=== PATIENT | male | born 1980 | race Caucasian/White ===

== ENCOUNTER 2018-05-20 08:51 | Emergency (ER) | payer BC ==
[2018-05-20 09:00] VITALS: BP 106/69
--- NOTE | 2018-05-20 09:20 | UC ---
Skin Complaint HPI - HPI Summary HPI Summary: 38 y/o male presents to the urgent care c/o a rash in his left ankle for the past 2 weeks s/p fishing. Pt reports he thought at the beginning it was a spire bite, but then he developed some vesicles and a linear rash. Then her mother who is a Nurse told him it was poison kia. He has been applying hydrocortisone topical cream to alleviate symptoms. It has spread in his other leg. however about 2 days redness w/ pain and swelling developed. He thinks it is getting infected since he has been scratching it a lot. He took Ibuprofen 600mg PO last night for pain. Pt denies fever, calf pain, SOB, chest pain, abdominal pain, N/V /D. - History of Current Complaint Chief Complaint: UCRash Time Seen by Provider: 05/20/18 09:19 Stated Complaint: RASH Hx Obtained From: Patient Onset/Duration: Sudden Onset, Lasting Weeks - 2 weeks, Still Present, Worse Since - 2 days Skin Exposure Onset/Duration: Weeks Ago - 2 weeks, Worse Since: - 2 days Timing: Constant Onset Severity: Mild Current Severity: Moderate Pain Intensity: 4 Pain Scale Used: 0-10 Numeric Location: Discrete - lateral side of left ankle rash Character: Swelling, Pruritus, Redness, Painful Aggravating Factor(s): Touch Alleviating Factor(s): OTC Meds Associated Signs & Symptoms: Positive: Rash, Drainage, Tenderness. Negative: Fever, Chills Related History: Possible Reaction to: Environmental Exposure - Allergy/Home Medications Allergies/Adverse Reactions: Allergies Allergy/AdvReac Type Severity Reaction Status Date / Time No Known Allergies Allergy Verified 05/20/18 09:00 Home Medications: Home Medications diphenhydrAMINE HCl [Benadryl Allergy 25 MG CAP] 50 mg PO 05/20/18 [History] Review of Systems Constitutional: Negative Skin: Rash - lateral side of left ankle red rash w/ swelling and pain Eyes: Negative ENT: Negative Respiratory: Negative Cardiovascular: Negative Gastrointestinal: Negative Genitourinary: Negative Motor: Negative Neurovascular: Negative Musculoskeletal: Negative Neurological: Negative Psychological: Negative Is Patient Immunocompromised?: No All Other Systems Reviewed And Are Negative: Yes PMH/Surg Hx/FS Hx/Imm Hx Previously Healthy: Yes - Pt denies PMHX - Surgical History Surgical History: None - Family History Known Family History: Positive: None - Pt denies FMHX - Social History Occupation: Employed Full-time Lives: With Family Alcohol Use: Daily Substance Use Type: Marijuana Substance Use Comment - Amount & Last Used: daily Smoking Status (MU): Never Smoked Tobacco Physical Exam - Summary Physical Exam Summary: Vital Signs Reviewed: Yes General: well developed, well nourished male sitting in the examining table w/o any apparent distress. Eyes: Positive: Conjunctiva Clear - PERRLA, EOMI ENT: Positive: Normal ENT inspection, Hearing grossly normal, Pharynx normal, TMs normal Neck: Positive: Supple, Nontender, No Lymphadenopathy Respiratory: Positive: Chest nontender, Lungs clear, Normal breath sounds Cardiovascular: Positive: RRR, No Murmur, Pulses Normal Abdomen Description: Positive: Nontender, No Organomegaly, Soft. Negative: CVA Tenderness (R), CVA Tenderness (L) Bowel Sounds: Positive: Present Musculoskeletal: Positive: Strength Intact, ROM Intact, No Edema Neurological Exam: Normal Psychological Exam: Normal Skin: Positive: rashes - Positive lateral side of left malleolus and above w/ a erythematous eruption in a streak pattern w/ some scattered vesicles and surrounding erythema w/ indistinct borders and some yellowish crusting in the center w/ yellowish drainage. tender to palpation and warm to touch.FROM of left ankle. sensation WNL, capillary refill brisk, pulses intact. Triage Information Reviewed: Yes Vital Signs: Initial Vital Signs Temp 98.6 F 05/20/18 08:56 Pulse 70 05/20/18 08:56 Resp 18 05/20/18 08:56 BP 106/69 05/20/18 08:56 Pulse Ox 99 05/20/18 08:56 Course/Dx - Course Course Of Treatment: 38 y/o male presents to the urgent care c/o a rash in his left ankle for the past 2 weeks s/p fishing. Pt reports he thought at the beginning it was a spire bite, but then he developed some vesicles and a linear rash. Then her mother who is a Nurse told him it was poison kia. He has been applying hydrocortisone topical cream to alleviate symptoms. It has spread in his other leg. however about 2 days redness w/ pain and swelling developed. He thinks it is getting infected since he has been scratching it a lot. He took Ibuprofen 600mg PO last night for pain. Pt denies fever, calf pain, SOB, chest pain, abdominal pain, N/V/D. Hx obtained. Pt w/ a poison kia rash co-infected now w/ cellulitis on the lateral side of left ankle on examination. Wound culture taken from crusting area and set to lab to r/o MRSA. Pt will be notified of result. Pt Rx Keflex PO, Triamcinolone topical cream and advised to continue taking Bednadryl PO to alleviate symptoms. Pt Advised if rash doubles in size and if he develops fever to go to the ER for further treatment. Pt understood and agreed w/ plan of care. - Differential Diagnoses - Skin Complaint Differential Diagnoses: Abscess, Cellulitis, Contact Dermatitis, MRSA, Poison Kia, Poison [place], Urticaria - Diagnoses Provider Diagnoses: 1- left ankle cellulitis s/p poison kia exposure. 2- Poison kia rash Discharge - Sign-Out/Discharge Documenting (check all that apply): Discharge/Admit/Transfer - D/c home - Discharge Plan Condition: Stable Disposition: HOME Prescriptions: Cephalexin CAP* [Keflex CAP*] 500 mg PO QID #28 cap Triamcinolone 0.1% CREAM(NF) [Kenalog Cream 0.1%(NF)] 1 applic TOPICAL BID #1 tube Patient Education Materials: Cellulitis (ED), Poison Kia (ED) Referrals: Michele Charles MD [Primary Care Provider] - 2 Days Additional Instructions: 1-Please take full course of Antibiotic. 2- If redness and swelling doubles in size after 48 hrs of taking antibiotic and fever develops please go to the ER immediately. 3-Avoid standing for long periods of time or flexing your left ankle, keep it elevated and keep wound clean and dry. 4- apply triamcinolone topical cream as directed and continue taking Benadryl Po to alleviate itchiness 5-Please F/u with your PCP in 2-3 days if not improvement of symptoms for further evaluation and treatment. - Billing Disposition and Condition Condition: STABLE Disposition: Home
--- NOTE | 2018-05-21 19:19 | UC ---
- Progress Note Progress Note: 05/21/2018 -Wound culture stain: no organisms seen. -Wound culture pending. Await results Deborah Villalpando PA-C Discharge - Sign-Out/Discharge Documenting (check all that apply): Discharge/Admit/Transfer - D/c home - Discharge Plan Condition: Stable Disposition: HOME Prescriptions: Cephalexin CAP* [Keflex CAP*] 500 mg PO QID #28 cap Triamcinolone 0.1% CREAM(NF) [Kenalog Cream 0.1%(NF)] 1 applic TOPICAL BID #1 tube Patient Education Materials: Cellulitis (ED), Poison Kia (ED) Referrals: Michele Charles MD [Primary Care Provider] - 2 Days Additional Instructions: 1-Please take full course of Antibiotic. 2- If redness and swelling doubles in size after 48 hrs of taking antibiotic and fever develops please go to the ER immediately. 3-Avoid standing for long periods of time or flexing your left ankle, keep it elevated and keep wound clean and dry. 4- apply triamcinolone topical cream as directed and continue taking Benadryl Po to alleviate itchiness 5-Please F/u with your PCP in 2-3 days if not improvement of symptoms for further evaluation and treatment. - Billing Disposition and Condition Condition: STABLE Disposition: Home
== END 2018-05-20 10:10 | disposition home or self-care (01) ==
LOC: UCEAST 08:51
DX: L03.115 Cellulitis of right lower limb (principal); L23.7 Allergic contact dermatitis due to plants, except food
CPT/HCPCS: 87070; 87077; 87186; 87205; 99212; G0463